=== PATIENT | male | born 1960 | race Caucasian/White ===

== ENCOUNTER → 2021-03-21 | Outpatient (CLI) | payer MEDICARE ==
[~2021-03-21] MED LIST: BUSPAR 10MG10 MG PO; MOBIC15 MG PO; PRILOSEC OTC20 MG PO; PROSTATE SR SO1 EACH PO; PROTONIX40 MG PO; PROVENTIL HFA 61 INH INH
== END ==
LOC: KOH-I 13:00
DX: M79.661 Pain in right lower leg (principal)
CPT/HCPCS: 93971